=== PATIENT | male | born 1955 | race African-American/Black ===

== ENCOUNTER 2023-10-30 01:48 | Inpatient (IN) | payer OTHER, SELFPAY ==
[2023-10-29 22:44] VITALS: BP 176/87
[2023-10-29 23:40] LABS: % Basophils 0.1 % (0-2); % Eosinophils 1.5 % (0-6); % Immature Granulocytes 0.3 % (0-0.5); % Lymphocytes 14.3 % (20.5-51.1); % Monocytes 10.8 % (1.7-9.3); Absolute Eosinophils 0.1 10^3/uL (0-0.7); Absolute Lymphocytes 1.1 10^3/uL (1.2-3.4); Absolute Monocytes 0.8 10^3/uL (0.1-0.6); Absolute Neutrophils 5.4 10^3/uL (1.4-6.5); Hematocrit 35.2 % (39.0-52.0); Hemoglobin 11.7 g/dL (13.0-18.0); Mean Corp Hgb Conc. 33.2 g/dL (33.0-37.0); Mean Corpuscular Hgb 28.3 pg (27.0-31.0); Mean Platelet Volume 12.3 fL (7.4-10.4); Nucleated Red Blood Cells % 0 % (-); Platelet Count 185 10^3/uL (130-400); Red Blood Cell Count 4.14 10^6/uL (4.70-6.10); Red Cell Dist. Width 13.9 % (11.5-14.5); White Blood Cell Count 7.4 10^3/uL (4.8-10.8)
[2023-10-29 23:55] LABS: ALT (SGPT) 26 U/L (0-50); AST (SGOT) 29 U/L (17-59); Albumin 4.1 g/dl (3.5-5.0); Alkaline Phosphatase 68 U/L (38-126); Blood Urea Nitrogen 22 mg/dl (9-20); Calcium 9.1 mg/dl (8.4-10.2); Carbon Dioxide 26 mmol/L (22-30); Chloride 105 mmol/L (98-107); Glucose 153 mg/dl (70-99); Potassium 3.9 mmol/L (3.5-5.1); Sodium 139 mmol/L (135-145); Total Bilirubin 0.5 mg/dl (0.2-1.3); Total Protein 6.9 g/dl (6.3-8.2); eGFR > 60.00
[2023-10-29 23:57] LABS: INR 1.12; PT 14.5 Sec (11.4-14.6)
[2023-10-30] VITALS (40 sets, daily range): BP systolic 74–155; BP diastolic 64–98; BMI 18.4
--- NOTE | 2023-10-30 01:02 | ED.GENMED ---
History of Present Illness
General
Chief Complaint: Rectal Bleeding
Source: patient and family
Time Seen by Provider: 10/29/23 22:52
Travel History
Have you had any contact with someone who has COVID-19?: No
Do you have any symptoms of coronavirus? Fever > 100 degrees, chills, cough, shortness of breath, sore throat, loss of taste or smell, muscle aches, or headache?: No
History of Present Illness
History of Present Illness:
68-year-old male who presents with rectal bleeding. Patient states that he felt like he had to pass gas and felt it was not quite right. Then noticed a little blood. Then noticed blood in the toilet. He later had another event and had some
normal stool with blood. Does note a history of hemorrhoids. He also had a colonoscopy in the past that showed diverticulosis. Patient denies abdominal pain or chest pain. Denies anticoagulant use.
Past History
Past History
ED Past Medical History: HTN and Other (Diverticulosis)
Phy Exam
Physical Exam
Physical Exam:
CONSTITUTIONAL Patient alert and oriented to person, place and time. Well-appearing. Vital signs reviewed.
HEAD atraumatic, normocephalic.
EYES eyelids normal to inspection, Pupils equally round and reactive to light, Extraocular muscles intact, Conjunctiva normal, Sclera normal.
NECK normal range of motion, Trachea midline, no jugular venous distention.
RESPIRATORY CHEST No respiratory distress noted, Chest expansion equal, Bilateral breath sounds clear.
CARDIOVASCULAR regular rate and rhythm, Heart sounds normal.
ABDOMEN abdomen nontender, Bowel sounds normal. No distention.
Rectal exam large hemorrhoids noted that are red and somewhat inflamed. Nontender. Bright red blood noted by CARMELLA
BACK normal inspection, no obvious deformities
UPPER EXTREMITY range of motion normal, Motor strength normal, no cyanosis, no edema.
LOWER EXTREMITY range of motion normal, Motor strength normal, no cyanosis, no edema.
NEURO Speech normal, No focal motor deficits, Acacia coma scale 15, Memory normal, Cranial Nerves intact to screening exam.
SKIN skin warm, dry, and normal in color.
Course
Orders/Labs/Results
Orders:
Orders
10/29/23 22:54
IV Insert/Care/Rem.- Treatment PRN
10/29/23 23:26
Type+Screen Urgent
Complete Blood Count/With Diff Urgent
Comprehensive Metabolic Panel Urgent
Prothrombin Time Urgent
10/30/23 00:54
CT Abd/pelvis Angio W/wo Iv Urgent
Comment:
Reason For Exam: rectal bleeding
10/30/23 01:20
Admit/Transfer Patient As Directed
Co-Sign Provider:
Level of Care: Inpatient admission
Assign to:: IMU- Intermediate Care
Physician / Group: [email or web address]
Diagnosis: acute LGIB
Reason for Hospitalization: acute LGIB
Expected length of stay greater than two midnights?: Yes
ELOS- Estimated Length of Stay in days: 3
I certify the patient meets the requirements for IP care: Yes
10/30/23 01:22
Code Status As Directed
Resuscitation Status: Full Code
11/01/23 11:00
DC Protocol for Telemetry ONCE
Abnormal Lab Results
10/29/23
23:26
RBC 4.14 L 10^6/uL
(4.70-6.10)
Hgb 11.7 L g/dL
(13.0-18.0)
Hct 35.2 L %
(39.0-52.0)
MPV 12.3 H fL
(7.4-10.4)
Absolute Lymphs (auto) 1.1 L 10^3/uL
(1.2-3.4)
Absolute Monos (auto) 0.8 H 10^3/uL
(0.1-0.6)
Lymphocytes % 14.3 L %
(20.5-51.1)
Monocytes % 10.8 H %
(1.7-9.3)
BUN 22 H mg/dl
(9-20)
Glucose 153 H mg/dl
(70-99)
10/29/23 23:26
10/29/23 23:26
Vital Signs
Initial and Last Documented VS:
Initial Vital Signs
Pulse Resp BP Pulse Ox
74 18 176/87 98
10/29/23 22:44 10/29/23 22:44 10/29/23 22:44 10/29/23 22:44
Last Documented Vital Signs
Pulse Resp BP Pulse Ox
78 11 138/84 98
10/30/23 02:45 10/30/23 02:45 10/30/23 02:00 10/30/23 01:45
MDM/Problems Addressed
MDM/Problems Addressed:
Rectal bleeding, diverticular bleeding, acute lower GI bleeding, hemorrhoids
*Radiology
Radiology exam reviewed: radiology read reviewed
*Pulse Oximetry
Patient hypoxic: no
*Critical Care Note
Total Time (30-74mins, 75-104mins- exclusive of procedures): 50 minutes
Data Reviewed
Source: patient and family
Prescriptions/Medications Considered But Not Given:
Considered PPI drip but clearly a lower GI bleed
Patient Management
Discussion with other providers: Hospitalist, Automotive Diagnostic Technician (Case discussed with gastroenterology) and Radiologist (Case discussed with interventional radiology)
Escalation/DeEscalation of care consider admission/obs:
Patient reports his last bowel movement was less blood. Patient remains hemodynamically very stable. Initial hemoglobin 11.7. Case discussed with interventional radiology as CTA does show suspected diverticular bleed. IR recommends monitoring
for now. This seems reasonable. Patient is quite stable. Hospitalist aware and will watch closely. Admit to IMU
ED Attending Note
-
Portions of this chart may have been created with voice recognition software.� Occasional wrong word or��sound alike� substitutions may have occurred due to the inherent limitations of voice recognition software.
Discharge Plan
Departure
Patient Disposition: Admit
Date of Disposition: 10/30/23
Time of Disposition: 01:03
Admit to: Telemetry
Presentation/result/management discussed w/ accepting MD/DO: Hospitalist
Discharge Problem:
Acute GI bleeding
Interventions
Interventions:
*Risk Screen - Suicide Last Done: 10/30/23 02:57
*General Assessment Last Done: 10/30/23 02:57
*Neglect/Abuse Screening Last Done: 10/29/23 22:48
ED- Fall Risk Assessment Last Done: 10/30/23 01:14
JU-Icubrp-Jpxcbdhdrz Assessment Last Done: 10/29/23 23:10
ED- Cardiac Assessment Last Done: 10/30/23 00:30
ED- Pulmonary Assessment Last Done: 10/30/23 00:30
--- NOTE | 2023-10-30 01:18 | HPS.HSE ---
Addendum entered and electronically signed by Jordan Ospina MD 10/30/23 19:00:
10/30/23 CT Abd/pelvis Angio W/wo Iv final report
1. ACUTE ACTIVE DIVERTICULAR HEMORRHAGE and MILD ACUTE DIVERTICULITIS in the HEPATIC FLEXURE of the COLON.
2. Severe diverticulosis throughout the descending and sigmoid colon.
3. Mild circumferential wall thickening in the rectum suspicious for a mild proctitis.
4. Large 5.4 cm gastric fundal diverticulum.
5. 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
6. Multiple parapelvic cysts in the kidneys.
7. 1.6 cm and 2.1 cm right-sided urinary bladder diverticula.
8. Mild enlargement of the prostate gland.
9. Large bilateral scrotal hydroceles (right larger than left).
10. 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
- IR consulted upon admission
Addendum entered and electronically signed by Jordan Ospina MD 10/30/23 03:02:
CTA AP suggest bleeding at proximal hepatic flexure Per ER attd
Case was discussed between ER attd and IR attd
Plan is observe Hgb overnight and IR will evalaute in AM
- cont. NPO, H & H
- Family is communicated ref to above plan by ER attd and evp and chief operating officer
- IR consulted
- upgrade level of care to IMU
Original Note:
Family Physician
-
Family Physician: Dami Ferrera
Chief Complaint
-
blood per rectum
History of Present Illness
68M seen at ER for evaluation of rectal bleed
Rectal bleeding
- acute sudden onset
- First brigh red blood per rectum followed by maroon colored blood then become rn admissions
- preceded by colicky lower abdominal pain
- Associated with feeling of fainting or anxious but did not pass out
- No prior HX GIB
- Not on any blood thinner
- Last colonoscopy at [facility]
- No prior admission to
Medical History
Past Medical History
Past Medical History: Reports HTN
Past Surgical History: Reports None
Social History
Tobacco: Non-smoker
Alcohol: Occasional
Drug: None
Personal:
Living: With Family
Family History
Family History: Not pertinent
Allergies / Home Medications
Allergies reflects when Allergies were last updated in [employer].
Home Medications with original date entered in [employer]
Allergy/Medication List:
Allergies
Allergy/AdvReac Type Severity Reaction Status Date / Time
No Known Allergies Allergy Unverified 10/29/23 22:43
Pending Rx reconciliation
Review of Systems
-
Constitutional: Reports No Symptoms
EENT: Reports No Symptoms
Respiratory: Reports No Symptoms
Cardiac: Reports No Symptoms
Abdomen/GI: Reports See HPI
: Reports No Symptoms
Musculoskeletal: Reports No Symptoms
Skin: Reports No Symptoms
Neurological: Reports No Symptoms
Endocrine: Reports No Symptoms
Hematologic/Lymphatic: Reports No Symptoms
Psych: Reports No Symptoms
Physical Exam
Vital Signs
Vital Signs
Pulse Resp BP Pulse Ox
85 16 155/93 98
10/30/23 01:00 10/30/23 01:00 10/30/23 01:00 10/30/23 01:00
Physical Exam
General: No Apparent Distress, Comfortable and Other (thin )
HEENT: NormoCephalic, Anicteric and Moist mucous membranes
Respiratory: Clear; No Wheezes, Rales or Rhonchi
Cardiac: S1/S2 and Regular Rhythm; No Tachycardia
Breast: Deferred by me
GI: Soft, Non Tender, Non Distended and Normal Bowel Sounds
Genito-urinary: Deferred by me
Musculoskeletal: No Edema
Skin: Warm and Dry
Neuro: AO x 3 and Nonfocal/grossly intact
Psych: Calm and Intact Judgment/Insight
Laboratory Results
-
10/29/23 23:26
10/29/23 23:26
Laboratory Results
PT 14.5 Sec (11.4-14.6) 10/29/23 23:26
INR 1.12 10/29/23 23:26
Total Bilirubin 0.5 mg/dl (0.2-1.3) 10/29/23 23:26
AST 29 U/L (17-59) 10/29/23 23:
ALT 26 U/L (0-50) 10/29/23 23:26
Alkaline Phosphatase 68 U/L (38-126) 10/29/23 23:26
Data Reviewed
-
CT Scan: Other (pending CTA A/P )
Lab Data: Labs Reviewed by me
Impression/Plan
-
Reviewed VS: HR 75 BP 176/87 RR 18 POx 98 %
Data
Hgb 11.7 -no prior data in [employer]
BUN 22
Unremarkable Cr and eGFR
07/01/21 ECHO
LVEF 60-65%
Nl RV function
Mild MR
Pending CTA AP
NO PRIOR hospitalist admission:
ASSESSMENT & PLAN
Pending Rx reconciliation
Acute painless maroon colord rectal bleed _ presumed LGIB
DDX: Diverticulosis, AVM
- Hemodynamically stable
- Pending CTA AP
- T & S , Blood consented
- Trend H & H q6H
- NPO nad IVF
- IV PPI daily
- GI consult
Essential HTN
- held STENO TYPIST amlodipine for now
DVT Px: SCD
Code: Full
IP TLM
[2023-10-30] MEDS: NSS 1000 IV ×3 (03:28→21:17)
--- NOTE | 2023-10-30 03:30 | EDRN ---
When returning from bathroom, pt. became dizzy, diaphoretic and nearly syncopized. Pt. assisted back to stretcher, returned on monitor, fluid bolus administered, admitting MD aware.
[2023-10-30 05:23] LABS: Hematocrit 28.9 % (39.0-52.0); Hemoglobin 9.8 g/dL (13.0-18.0)
--- NOTE | 2023-10-30 05:53 | PTCARENOTE ---
Pt arrived from ED approx 0430, accompanied by spouse. Pt is AAO3, denies pain. Telemetry rhythm reveals SR, HR 60-70'S, no edema, palpable peripheral pulses present, knee high SCDs placed per order. Lung sounds are clear throughout, pt denies
SOB/BOWLES/cough, pox 96-98% on room air. +BS, abdomen soft nontender, NPO status maintained, pt denies nausea. Pt instructed to use call linares if he needs to have bm so staff can assist him to bedside commode. Urinal at bedside. R AC int with IVF as
ordered. Skin intact. Call linares within reach, safe environment maintained. All admission information obtained by pt and pt's spouse. Will monitor closely.
[2023-10-30 05:54] LABS: Blood Urea Nitrogen 19 mg/dl (9-20); Calcium 8.3 mg/dl (8.4-10.2); Carbon Dioxide 23 mmol/L (22-30); Chloride 110 mmol/L (98-107); Estimated Creatinine Clearance 69 ml/min; Glucose 118 mg/dl (70-99); Potassium 4.5 mmol/L (3.5-5.1); Sodium 137 mmol/L (135-145); eGFR > 60.00
--- NOTE | 2023-10-30 07:49 | CON.GI ---
Addendum entered and electronically signed by Jeanine Birmingham MD 10/30/23 20:46:
I saw and examined the patient.
The PUBLICATIONS SALES REPRESENTATIVE or PA's note was reviewed and I agree with the note.
Comment: 59-year-old male with history of hypertension presenting with painless rectal bleeding after dinner last night, multiple episodes of bright blood, in the emergency room, CT angiogram showed active diverticular hemorrhage and possible mild
diverticulitis. Clinically no abdominal pain to suggest diverticulitis. Hemoglobin did drop from 11.7 on admission to 9.6. No blood transfusions needed at this time. Angiogram repeated today did not show any active bleeding and embolization
performed. Colonoscopy at [facility] about a year ago showing diverticulosis and hemorrhoids. No polyps noted. No family history of colon cancers or polyps. No NSAID use.
-Painless rectal bleeding, likely diverticular with positive CT angio in the hepatic flexure area
Given no pain, no suspicion for acute diverticulitis.
Monitor H&H and transfuse if needed.
If no bleeding continues, will plan for colonoscopy inpatient.
Will follow closely
Original Note:
Consultation
-
Date/Time Consultation Requested: 10/30/23425
Date/Time Consultation Performed: 10/30/23729
Requesting Provider: Dr. Archer
Performing Provider: Dr. Birmingham/JUAN Ruby
Reason for Consultation: GI BLeed
Medical History
Chief Complaint / HPI
Chief Complaint: rectal Bleeding
History of Present Illness:
59-year-old male with past medical history of hypertension only presents to the emergency room with acute onset of bright red blood per rectum. The patient states that after dinner last evening he went to the bathroom. He was just urinating felt
the urge to have passed flatus. He went and got up and saw a very small amount of bright red blood per rectum. He then proceeded to have another episode of large voluminous amount of bright red blood per rectum. After this he proceeded to come to
the emergency room. The patient never had any associated pain or cramping with this. When he came to the ER he had more episodes of this. He did have 1 episode of dizziness associated with this. He never had any pain or cramping. He has had a
total of 7 bowel movements that were straight blood. Some with clots. His most recent one was just prior to me arriving at approximately 715 that was approximately 125 cc of bright red blood. The patient denies any fevers, chills, nausea,
vomiting, melena, dysphagia or odynophagia. The patient has no early satiety or unintentional weight loss. He is on no NSAIDS or anticoagulation.
Past Medical History
Past Medical History: HTN
Past Surgical History: None
Social History
Tobacco: Non-Smoker
Alcohol: None
Drug: None
Personal:
Living: With Family
Family History
Family History: Reviewed & Not Pertinent (No family history gastrointestinal malignancy or inflammatory bowel disease)
Allergies / Home Medications
Allergy/AdvReac Type Severity Reaction Status Date / Time
No Known Allergies Allergy Unverified 10/29/23 22:43
�Medication �Instructions �Recorded
amlodipine PO DAILY 10/30/23
Review of Systems
-
All other systems: A 12 pt ROS was Negative except as stated above in HPI
Vital Signs
Temp Pulse Resp BP Pulse Ox
98.0 F 66 16 105/74 67
10/30/23 07:13 10/30/23 06:00 10/30/23 05:00 10/30/23 06:00 10/30/23 06:00
Physical Exam
Exam
General: No Apparent Distress
HEENT: Anicteric
Respiratory: Clear
Cardiac: Regular Rhythm
GI: Soft, Non Tender, Non Distended and Normal Bowel Sounds
Rectal: Other (Bright red blood approximately 125 cc output just prior to me arriving, visualize personally in commode)
Musculoskeletal: No Edema
Skin: Warm and Dry
Neuro: AO x 3
Psych: Calm
Results
WBC 7.4 10^3/uL (4.8-10.8) 10/29/23 23:26
Hgb 9.8 g/dL (13.0-18.0) L 10/30/23 05:09
Hct 28.9 % (39.0-52.0) L 10/30/23 05:09
MCV 85.0 fL (80.0-94.0) 10/29/23 23:26
Plt Count 185 10^3/uL (130-400) 10/29/23 23:26
Absolute Neuts (auto) 5.4 10^3/uL (1.4-6.5) 10/29/23 23:26
PT 14.5 Sec (11.4-14.6) 10/29/23 23:26
INR 1.12 10/29/23 23:26
Sodium 137 mmol/L (135-145) 10/30/23 05:09
Potassium 4.5 mmol/L (3.5-5.1) 10/30/23 05:09
Chloride 110 mmol/L (98-107) H 10/30/23 05:09
Carbon Dioxide 23 mmol/L (22-30) 10/30/23 05:09
BUN 19 mg/dl (9-20) 10/30/23 05:09
Creatinine 0.8 mg/dL (0.7-1.3) 10/30/23 05:09
Calcium 8.3 mg/dl (8.4-10.2) L 10/30/23 05:09
Total Bilirubin 0.5 mg/dl (0.2-1.3) 10/29/23 23:26
AST 29 U/L (17-59) 10/29/23 23:26
ALT 26 U/L (0-50) 10/29/23 23:26
Alkaline Phosphatase 68 U/L (38-126) 10/29/23 23:26
Diagnostic Image Results:
CTA abdomen and pelvis 10/30/2023:
IMPRESSION:
1. ACUTE ACTIVE DIVERTICULAR HEMORRHAGE and MILD ACUTE DIVERTICULITIS in the HEPATIC FLEXURE of the COLON.
2. Severe diverticulosis throughout the descending and sigmoid colon.
3. Mild circumferential wall thickening in the rectum suspicious for a mild proctitis.
4. Large 5.4 cm gastric fundal diverticulum.
5. 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
6. Multiple parapelvic cysts in the kidneys.
7. 1.6 cm and 2.1 cm right-sided urinary bladder diverticula.
8. Mild enlargement of the prostate gland.
9. Large bilateral scrotal hydroceles (right larger than left).
10. 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
A preliminary interpretation was provided by [facility] teleradiology service. The preliminary report was discussed with Sohail Archer DO of the Emergency Department at 2:15 AM on 10/30/2023.
I discussed this with Dr. Hubbard. Patient has no pain, fevers, leukocytosis to support acute diverticulitis.
Prior GI Procedures:
EGD:
Colonoscopy: Approximately 1 year ago at [facility]. Per patient diverticulosis and hemorrhoids only
Assessment / Plan
-
59-year-old male with past medical history of hypertension only presents to the emergency room with acute onset of bright red blood per rectum. The patient states that after dinner last evening he went to the bathroom. He was just urinating felt
the urge to have passed flatus. He went and got up and saw a very small amount of bright red blood per rectum. He then proceeded to have another episode of large voluminous amount of bright red blood per rectum. After this he proceeded to come to
the emergency room. The patient never had any associated pain or cramping with this. When he came to the ER he had more episodes of this. He did have 1 episode of dizziness associated with this. He never had any pain or cramping. He has had a
total of 7 bowel movements that were straight blood. Patient with hemoglobin 11.7 on arrival now down to 9.85 hours later. Still with multiple episodes of bright red blood per rectum. CTA positive with hemorrhage in the hepatic flexure at the
area of diverticulum. Discussed with Dr. Hubbard from interventional radiology. Will take patient to IR today to try to intervene.
Impression:
Acute lower GI bleed
-- Active extravasation in the right colon, seen on CTA
-- No acute signs of diverticulitis. Patient without any leukocytosis, fever or abdominal pain
Plan:
-Keep patient n.p.o.
-Interventional radiology come in today for intervention
-Continue to trend hemoglobin
-Transfuse as needed
-Further recommendations to be forthcoming
Data Reviewed
-
CT Scan: Report Reviewed by me and Discussed with Physician
-
-
Thank you for consultation and allowing me to participate in the patient's care. Please call the clinical rehabilitation aide GI physician during the after hours with any questions or concerns.
[2023-10-30] MEDS: NSS (PRESERVATIVE FREE) 10 ML IV (07:59)
[2023-10-30] MEDS: PROTONIX IV 40 MG IV (07:59)
--- NOTE | 2023-10-30 08:20 | PTCARENOTE ---
Patient received from night worker. Patient resting comfortably in bed. AAO, VSS. No events noted overnight. No complaints of pain. Did have a bloody stool this AM with some clots via bedside commode. NSS @ 60mL/hr. NPO. IR consult placed.
Call linares in reach.
--- NOTE | 2023-10-30 09:00 | W.PN.UPDATE ---
Update Note
Progress Note Update
Non-billable addendum (H&P completed 1 AM todays date)
denies any new complaints at present
most recent Hb is 9.8
Assessment:
Acute ACTIVE lower GI bleed
- CTA: ACUTE ACTIVE DIVERTICULAR HEMORRHAGE and MILD ACUTE DIVERTICULITIS in the HEPATIC FLEXURE of the COLON.
- type/screen, consented
- trend Hb
- NPO
- IVF
- GI consulted
- IR consulted: for intervention today
Essential HTN
- hold Amlodipine; family will provide dose info later
DVT ppx: SCDs
Code: Full
[2023-10-30 10:01] LABS: Hematocrit 28.4 % (39.0-52.0); Hemoglobin 9.8 g/dL (13.0-18.0)
--- NOTE | 2023-10-30 11:05 | W.PN.UPDATE ---
Update Note
Progress Note Update
Procedure: SMA arteriogram
- SMA arteriogram performed. No findings of active bleeding with careful attention paid to the proximal colon based on CTA findings
- Vitals stable during the procedure. Repeat h/h also stable. Clinically and radiographically does not appear to be bleeding at the moment. Continue conservative measures
- 5F Mynx closure device. R leg flat for 3 hours.
--- NOTE | 2023-10-30 11:30 | PTCARENOTE ---
Patient received from IR. AAO, VSS. Positive pulses in all extremities. Site CDI.
--- NOTE | 2023-10-30 12:34 | CM ---
Patient seen bedside with spouse.
Patient lives in a 2 story home with spouse.
Patient independent prior to admission without assistive devices.
Patient works and drives.
Patient has not had VN in the past, no assistive devices.
PCP: Dr Altman
[facility]acy: [facility]
Plan: home no needs.
L
[2023-10-30 16:29] LABS: Hematocrit 28.7 % (39.0-52.0); Hemoglobin 9.6 g/dL (13.0-18.0)
[2023-10-30 22:39] LABS: Hematocrit 24.7 % (39.0-52.0); Hemoglobin 8.6 g/dL (13.0-18.0)
[2023-10-31] VITALS (22 sets, daily range): BP systolic 104–152; BP diastolic 62–88; PULSE 79–103
--- NOTE | 2023-10-31 05:22 | PTCARENOTE ---
Patient received from day shift. Patient resting comfortably in bed. AAO x 3; VSS. No issues overnight. No complaints of pain. Bloody BM x 2; Pt denies pain, dizzines or lightheadedness; NSS @ 60mL/hr. Clear liquid ddiet; Will continue to
monitor and assess.
[2023-10-31 06:10] LABS: Hematocrit 24.9 % (39.0-52.0); Hemoglobin 8.6 g/dL (13.0-18.0); Mean Corp Hgb Conc. 34.5 g/dL (33.0-37.0); Mean Corpuscular Hgb 28.7 pg (27.0-31.0); Platelet Count 152 10^3/uL (130-400); Red Cell Dist. Width 14.4 % (11.5-14.5); White Blood Cell Count 5.3 10^3/uL (4.8-10.8)
[2023-10-31 06:21] LABS: Blood Urea Nitrogen 13 mg/dl (9-20); Calcium 8.5 mg/dl (8.4-10.2); Carbon Dioxide 25 mmol/L (22-30); Chloride 110 mmol/L (98-107); Estimated Creatinine Clearance 78 ml/min; Glucose 84 mg/dl (70-99); Potassium 3.7 mmol/L (3.5-5.1); Sodium 138 mmol/L (135-145); eGFR > 60.00
[2023-10-31] MEDS: PROTONIX IV 40 MG IV (09:25)
[2023-10-31] MEDS: NSS (PRESERVATIVE FREE) 10 ML IV (09:27)
--- NOTE | 2023-10-31 09:50 | W.PN.HOSP.TC ---
Today's Communication/Plan
-
full liquids to start
monitor Hb
resume BP med tomorrow
Assessment / Plan
Assessment / Plan
Assessment:
Acute ACTIVE lower GI bleed
- CTA: ACUTE ACTIVE DIVERTICULAR HEMORRHAGE and MILD ACUTE DIVERTICULITIS in the HEPATIC FLEXURE of the COLON.
- s/p IR evaluation, no active bleed seen
- monitor Hb, currently Hb 8.6
- cap IVF
- diet: Full liquids, if tolerated LRD in evening
- GI following; observe additional 24 hours for any further bleeding, if stable Wednesday can DC
Essential HTN
- resume Amlodipine 10mg daily tomorrow
DVT ppx: SCDs
Code: Full
Anticipated Discharge: Within 24 hours
Subjective/Interval History
-
Date of Service: October 31, 2023
No further evidence of bleeding
Hb stable at 8.6
Objective Data
-
Labs:
Laboratory Results
10/30/23 10/31/23
22:32 06:02
WBC 5.3
Hgb 8.6 L 8.6 L
Hct 24.7 L 24.9 L
Plt Count 152
Sodium 138
Potassium 3.7
Chloride 110 H
Carbon Dioxide 25
BUN 13
Creatinine 0.7
Glucose 84
Calcium 8.5
Vital Signs:
Vital Signs
Temp Pulse Resp BP Pulse Ox
98.4 F 61 12 135/68 98
10/31/23 07:30 10/31/23 08:00 10/31/23 08:00 10/31/23 08:00 10/31/23 08:00
I&O
10/30/23 10/31/23 11/01/23
06:59 06:59 06:59
Intake Total 120 / 120 400 / 400
Output Total 500 / 500 650 / 650
Balance -380 / -380 -250 / -250
Physical Exam
-
General: No Apparent Distress
HEENT: Normocephalic and Atraumatic
Respiratory: Negative Wheezes
Cardiac: Regular Rhythm and S1/S2
GI: Soft and Nontender
Genito-urinary: No Costovertebral Tender
Neuro: AO x 3
Hematologic / Lymphatic: No Lymphadenopathy
Psych: Calm
Data Reviewed
-
Total Time Spent with Patient (in minutes): 42
Labs: Labs Reviewed by me
--- NOTE | 2023-10-31 10:14 | W.PN.GI.CBS2 ---
Today's Communication / Plan
-
Likely diverticular bleed causing painless hematochezia.
-Repeat angiogram without any evidence of active bleeding. Bowel movements continue to get clear. No further bloody bowel movements
Monitor H&H and transfuse if needed, if hemoglobin less than 7.
Okay to advance to full liquid diet.
If no further bleeding, can advance to low residue diet for dinner. Continue to monitor bowel movements though.
Hemoglobin stable at 8.6.
If slow bleeding continues, will plan for colonoscopy.
Discussed with patient and family that after discharge, he will need repeat CBC with his PCP in 2 weeks and iron rich foods as outpatient.
Will follow
Assessment / Plan
-
59-year-old male with past medical history of hypertension only presents to the emergency room with acute onset of bright red blood per rectum. The patient states that after dinner last evening he went to the bathroom. He was just urinating felt
the urge to have passed flatus. He went and got up and saw a very small amount of bright red blood per rectum. He then proceeded to have another episode of large voluminous amount of bright red blood per rectum. After this he proceeded to come to
the emergency room. The patient never had any associated pain or cramping with this. When he came to the ER he had more episodes of this. He did have 1 episode of dizziness associated with this. He never had any pain or cramping. He has had a
total of 7 bowel movements that were straight blood. Patient with hemoglobin 11.7 on arrival now down to 9.85 hours later. Still with multiple episodes of bright red blood per rectum. CTA positive with hemorrhage in the hepatic flexure at the
area of diverticulum. Discussed with Dr. Hubbard from interventional radiology. Will take patient to IR today to try to intervene.
Impression:
Acute lower GI bleed
-- Active extravasation in the right colon, seen on CTA
-- No acute signs of diverticulitis. Patient without any leukocytosis, fever or abdominal pain
Plan:
Likely diverticular bleed causing painless hematochezia.
-Repeat angiogram without any evidence of active bleeding. Bowel movements continue to get clear. No further bloody bowel movements
Monitor H&H and transfuse if needed, if hemoglobin less than 7.
Okay to advance to full liquid diet.
If no further bleeding, can advance to low residue diet for dinner. Continue to monitor bowel movements though.
Hemoglobin stable at 8.6.
If slow bleeding continues, will plan for colonoscopy.
Discussed with patient and family that after discharge, he will need repeat CBC with his PCP in 2 weeks and iron rich foods as outpatient.
Will follow
Subjective
Subjective
Date of Service: October 31, 2023
Patient without any abdominal pain, nausea or vomiting. Had 1 small bowel movement this morning with minimal blood, yesterday he had about 3 bowel movements after the angiogram, bleeding is much improved.
Objective
Data Reviewed
Laboratory Data:
Laboratory Results
10/31/23 06:02
10/31/23 06:02
Laboratory Results
PT 14.5 Sec (11.4-14.6) 10/29/23 23:26
INR 1.12 10/29/23 23:26
Total Bilirubin 0.5 mg/dl (0.2-1.3) 10/29/23 23:26
AST 29 U/L (17-59) 10/29/23 23:26
ALT 26 U/L (0-50) 10/29/23 23:26
Alkaline Phosphatase 68 U/L (38-126) 10/29/23 23:26
Vital Signs and I&O:
Vital Signs
Temp Pulse Resp BP Pulse Ox
98.4 F 61 12 135/68 98
10/31/23 07:30 10/31/23 08:00 10/31/23 08:00 10/31/23 08:00 10/31/23 08:00
I&O
10/30/23 10/31/23 11/01/23
06:59 06:59 06:59
Intake Total 120 / 120 400 / 400
Output Total 500 / 500 650 / 650
Balance -380 / -380 -250 / -250
Physical Exam
Physical Exam
GI: Soft, Non Distended and Non Tender
--- NOTE | 2023-10-31 10:50 | PTCARENOTE ---
Patient ambulated to patient urinated and had very small amount of blood per rectum in toilet. IV fluids discontinued as per MD orders. Patient to be advanced to full liquids at lunch. Tolerating clear liquids for breakfast. VS stable. Offers
no complaints at this time. Will monitor.
--- NOTE | 2023-10-31 15:53 | PTCARENOTE ---
Patient tolerated full liquid diet. Denies any pain or discomfort. No significant bloody stools. Vital stable.
--- NOTE | 2023-10-31 17:21 | PTCARENOTE ---
Report given to Will RN. Patient transferred to [address] [place] [address] [address] 2 in wheelchair. All belongings with the patient.
--- NOTE | 2023-10-31 23:36 | PTCARENOTE ---
Has had no stools since transferred to [facility] late this afternoon. Denies any pain or other sx. Tolerated lo residue diet.
--- NOTE | 2023-11-01 06:11 | PTCARENOTE ---
Sml amt loose burgundy colored discharge from rectum in toilet - estimate approx 50ml or less. No pain or other assoc symptoms. Pt stated, 'this is nothing compared to what it was before'.
[2023-11-01 07:00] VITALS: BP 144/89
[2023-11-01] MEDS: NORVASC 10 MG PO (07:57)
[2023-11-01 09:46] LABS: Hematocrit 29.3 % (39.0-52.0); Hemoglobin 9.7 g/dL (13.0-18.0); Mean Corp Hgb Conc. 33.1 g/dL (33.0-37.0); Mean Corpuscular Hgb 28.3 pg (27.0-31.0); Mean Corpuscular Volume 85.4 fL (80.0-94.0); Mean Platelet Volume 12.5 fL (7.4-10.4); Platelet Count 193 10^3/uL (130-400); Red Blood Cell Count 3.43 10^6/uL (4.70-6.10); White Blood Cell Count 5.9 10^3/uL (4.8-10.8)
[2023-11-01 10:48] LABS: Blood Urea Nitrogen 11 mg/dl (9-20); Calcium 9.4 mg/dl (8.4-10.2); Carbon Dioxide 28 mmol/L (22-30); Chloride 103 mmol/L (98-107); Estimated Creatinine Clearance 69 ml/min; Glucose 136 mg/dl (70-99); Potassium 3.5 mmol/L (3.5-5.1); Sodium 138 mmol/L (135-145); eGFR > 60.00
--- NOTE | 2023-11-01 11:01 | W.PN.HOSP.TC ---
Today's Communication/Plan
-
Discharge
Assessment / Plan
Assessment / Plan
Gen-AAOx3, NAD
HEENT-NC, AT, anicteric, clear oral mm
Neck-supple
CV-reg, no M, +S1/S2
Lungs-clear B/L
Abd-soft, NT, ND
Ext-no edema
Musculoskeletal-no cyanosis, clubbing
Skin-warm and dry
Neuro-grossly non-focal
Psych-calm, cooperative
Acute ACTIVE lower GI bleed
- CTA: ACUTE ACTIVE DIVERTICULAR HEMORRHAGE and MILD ACUTE DIVERTICULITIS in the HEPATIC FLEXURE of the COLON.
- s/p IR evaluation, no active bleed seen
- Hemoglobin spontaneously improved to 9.7 today.
- cap IVF
Tolerating low residue diet.
Patient had a colonoscopy last year.
Essential HTN
- resume Amlodipine 10mg daily
DVT ppx: SCDs
Code: Full
Dispo -medically stable for discharge. Follow-up with PCP, GI. Discussed with on the phone. CBC to be checked in 2 weeks to monitor hemoglobin.
32 minutes spent in discharge process.
Anticipated Discharge: Today
Subjective/Interval History
-
Date of Service: November 01, 2023
Patient seen and examined. No complaints.
Objective Data
-
Labs:
Laboratory Results
11/01/23
08:59
WBC 5.9
Hgb 9.7 L
Hct 29.3 L
Plt Count 193 D
Sodium 138
Potassium 3.5
Chloride 103
Carbon Dioxide 28
BUN 11
Creatinine 0.8
Glucose 136 H
Calcium 9.4
Vital Signs:
Vital Signs
Temp Pulse Resp BP Pulse Ox
98.5 F 75 16 144/89 99
11/01/23 07:00 11/01/23 07:00 11/01/23 07:00 11/01/23 07:00 11/01/23 07:00
I&O
10/31/23 11/01/23 11/02/23
06:59 06:59 06:59
Intake Total 400 / 400 1620 / 1620
Output Total 650 / 650
Balance -250 / -250 1620 / 1620
Review of Systems
-
History Source: Patient
All other systems: Reviewed and negative
--- NOTE | 2023-11-01 11:03 | W.DS.TRANS ---
DC Summary - Employee Relations Representative
-
Discharge Instructions:
Discharge Diagnosis/Procedures Acute diverticular bleed, acute blood loss
anemia
Diet Low Residue
Activity As tolerated
Driving Restrictions As prior to admission
Bathing Restrictions None
Blood Work CBC in 2 weeks with your primary care doctor
Instructions:
Stand-Alone Forms:
Changes to Home Medications: No
Discharge Medications:
DC Medications w/original date entered in [facility]
amlodipine 10 mg PO DAILY 10/30/23
Home Medication Changes
Pending Results: No
--- NOTE | 2023-11-01 11:24 | CM ---
Patient seen bedside, reports no needs to CM upon discharge. Patient confirms he has transportation home. IMM reviewed, signed, placed in patients chart. CM will continue to follow for all discharge planning needs.
Plan; home no needs.
[2023-11-01 11:34] VITALS: BP 147/83
[2023-11-02 15:06] LABS: Hepatitis C Antibody Negative (Negative)
== END 2023-11-01 11:37 | disposition home or self-care (01) | DRG 378 ==
LOC: 4 WEST ACU 01:48
PROVIDERS: Internal Medicine; Radiology Diagnostic Radiology; ADMITTING PHYSICIAN Internal Medicine; ATTENDING PHYSICIAN Hospitalist; CONSULT PHYSICIAN Internal Medicine Gastroenterology; EMERGENCY PHYSICIAN Emergency Medicine; FAMILY PHYSICIAN Family Medicine
PROC: B4141ZZ Fluoroscopy of Superior Mesenteric Artery using Low Osmolar Contrast (ICD-10-PCS; 2023-10-30)
DX: K57.33 Diverticulitis of large intestine without perforation or abscess with bleeding (principal); D62 Acute posthemorrhagic anemia; Q61.02 Congenital multiple renal cysts; I10 Essential (primary) hypertension; N32.3 Diverticulum of bladder; N40.0 Benign prostatic hyperplasia without lower urinary tract symptoms; N43.3 Hydrocele, unspecified
CPT/HCPCS: 36245; 74174; 75726; 76937; 80048; 80053; 85014; 85018; 85025; 85027; 85610; 86803; 86850; 86900; 86901; 90677; 93005; 96360; 99152; 99291; C1769; C1887; G0009; Q9967